=== PATIENT | male | born 1955 ===

== ENCOUNTER → 2018-11-05 13:09 | Outpatient (REF) | payer OTHER, SELFPAY ==
[2018-11-05 13:38] LABS: Alanine Aminotransferase 36 IU/L (21-72); Aspartate Aminotransferase 25 IU/L (17-59); C-Reactive Protein Quant 1.4 mg/dL (<1.0); Cholesterol 124 mg/dL (140-199); HDL Cholesterol 36 mg/dL (40-60); LDL Cholesterol Calculated 70 mg/dL (<100); Triglycerides 90 mg/dL (35-150)
== END ==
LOC: LAB 13:09
PROVIDERS: Visit Provider Family Medicine
DX: E78.5 Hyperlipidemia, unspecified (principal)
CPT/HCPCS: 80061; 84450; 84460; 86140